=== PATIENT | female | born 1945 ===

== ENCOUNTER → 2018-01-03 06:42 | Outpatient (CLI) | payer OTHER | END | disposition home or self-care (01) | LOC: LAB 06:42 | DX: R76.11 Nonspecific reaction to tuberculin skin test without active tuberculosis (principal) ==

== ENCOUNTER → 2018-04-26 | Emergency (ER) | payer OTHER ==
[~2018-04-26] VITALS: Ht 162.6 cm; Wt 99.8 kg
[~2018-04-26] MED LIST: BRIO
== END | disposition home or self-care (01) ==
LOC: ER 20:39
DX: S50.12XA Contusion of left forearm, initial encounter (principal); S50.02XA Contusion of left elbow, initial encounter; S80.02XA Contusion of left knee, initial encounter; S80.01XA Contusion of right knee, initial encounter; S20.212A Contusion of left front wall of thorax, initial encounter; S20.211A Contusion of right front wall of thorax, initial encounter; S40.012A Contusion of left shoulder, initial encounter; W18.39XA Other fall on same level, initial encounter; Y93.89 Activity, other specified; Y92.098 Other place in other non-institutional residence as the place of occurrence of the external cause; Y99.8 Other external cause status; M17.0 Bilateral primary osteoarthritis of knee